=== PATIENT | female | born 1970 ===

== ENCOUNTER 2020-04-19 12:01 | Emergency (ER) | payer OTHER ==
--- NOTE | 2020-04-19 12:18 | EDM.PDOC ---
ED HPI GENERAL MEDICAL PROBLEM - General Chief Complaint: Lower Extremity Injury/Pain Stated Complaint: FALL Time Seen by Provider: 04/19/20 12:11 Source of Information: Reports: Patient History Limitations: Reports: No Limitations - History of Present Illness INITIAL COMMENTS - FREE TEXT/NARRATIVE: HISTORY AND PHYSICAL: History of present illness: Patient is a 49-year-old female presents to the ED via EMS for a left ankle injury. Patient states that she had tripped on her dog just prior to arrival to the ED and twisted/landed on her left ankle. She denies any head injury or loss of consciousness. She denies any proximal knee or hip pain and denies distal numbness or tingling. Patient received 100 mcg of fentanyl and 4 mg of Zofran in route to ED. She denies any pain other than with moving ankle at this time. Review of systems: As per history of present illness and below otherwise all systems reviewed and negative. Past medical history: As per history of present illness and as reviewed below otherwise noncontributory. Surgical history: As per history of present illness and as reviewed below otherwise noncontributory. Social history: No reported history of drug or alcohol abuse. Family history: As per history of present illness and as reviewed below otherwise noncontributory. Physical exam: General: Patient sitting comfortably in no acute distress and nontoxic appearing HEENT: Atraumatic, normocephalic, pupils reactive, negative for conjunctival pallor or scleral icterus, mucous membranes moist, throat clear, neck supple, nontender, trachea midline. No meningeal signs. Lungs: Clear to auscultation, breath sounds equal bilaterally, chest nontender. Heart: S1S2, regular, negative for clicks, rubs, or overt murmur. Abdomen: Soft, nondistended, nontender. Negative for masses or hepatosplenomegaly. Negative for costovertebral tenderness. No rigidity, rebound , guarding. Pelvis: Stable nontender. Genitourinary: Deferred. Rectal: Deferred. Extremities: Atraumatic, negative for cords or calf pain. Neurovascular unremarkable. Neuro: Awake, alert, oriented. Cranial nerves II through XII unremarkable. Cerebellum unremarkable. Motor and sensory unremarkable throughout. Exam nonfocal. Notes: 1200 - x-ray shows a displaced bimalleolar with possible posterior malleolar fracture. Discussed with Dr. Moraes, advised reduction and follow up in clinic on (04/21). Patient was sedated with [address] Berumen. Ankle was reduced easily and a posterior and stirrup splint placed. Patient tolerated procedure well. Patient was given crutches for left tri-malleolar fracture. Diagnostics: Left ankle x-ray Therapeutics: 50mg Fentanyl IV Prescriptions: [place] Impression: Left ankle fracture Plan: Elevate and motrin as needed. You may take norco as needed for severe pain. No weight bearing as discussed, use crutches as instructed You have a follow up appointment with Dr. Moraes at 3:30pm on , April 21. Please arrive at least 15 minutes early for registration purposes Definitive disposition and diagnosis as appropriate pending reevaluation and review of above. Left Ankle Pain Score (Numeric/FACES): 4 - Related Data Allergies Allergy/AdvReac Type Severity Reaction Status Date / Time amoxicillin [Amoxicillin] Allergy Rash Verified 04/19/20 12:06 Home Meds: Home Meds FLUoxetine [PROzac] 80 mg PO DAILY 03/21/14 [History] Acetaminophen/HYDROcodone [[place] 325-5 MG] 1 tab PO Q4H #15 tablet 04/19/20 [Rx] lisinopriL [Lisinopril] 1 tab PO DAILY 04/19/20 [History] Past Medical History HEENT History: Reports: None Cardiovascular History: Reports: Hypertension Respiratory History: Reports: None Gastrointestinal History: Reports: None Genitourinary History: Reports: None 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: 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 History: Reports: None Neurological History: Reports: None Psychiatric History: Reports: Depression Endocrine/Metabolic History: Reports: None Hematologic History: Reports: None Immunologic History: Reports: None Oncologic (Cancer) History: Reports: None Dermatologic History: Reports: None - Infectious Disease History Infectious Disease History: Reports: None - Past Surgical History GI Surgical History: Reports: Other (See Below) Female Surgical History: Reports: Section 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 Surgical History: Reports: Carpal Tunnel Social & Family History - Family History Family Medical History: Noncontributory - Caffeine Use Caffeine Use: Reports: Soda Review of Systems - Review of Systems Review Of Systems: Comprehensive ROS is negative, except as noted in HPI. ED EXAM, GENERAL - Physical Exam Exam: See Below (See dictation) Course - Vital Signs Last Recorded V/S: Last Vital Signs Temp 97.3 F 04/19/20 12:07 Pulse 86 04/19/20 14:05 Resp 16 04/19/20 14:05 BP 110/66 04/19/20 14:05 Pulse Ox 97 04/19/20 14:05 - Orders/Labs/Meds Orders: Active Orders 24 hr Category Date Time Status DME for Discharge [COMM] Stat Oth 04/19/20 14:01 Ordered Meds: Medications Discontinued Medications Generic Name Dose Route Start Last Admin Trade Name Corin PRN Reason Stop Dose Admin Fentanyl 50 mcg 04/19/20 13:07 04/19/20 13:14 Sublimaze IVPUSH 04/19/20 13:08 50 mcg ONETIME ONE Administration Sodium Chloride 1,000 mls @ 999 mls/hr 04/19/20 13:34 04/19/20 13:38 Normal Saline IV 04/19/20 14:34 999 mls/hr STAT ONE Administration Propofol 100 mg 04/19/20 13:26 04/19/20 13:38 Diprivan 20 Ml IVPUSH 04/19/20 13:27 100 mg ONETIME ONE Administration Propofol Confirm 04/19/20 13:26 04/19/20 13:30 Diprivan 20 Ml Administered 04/19/20 13:27 Not Given Dose 200 mg .ROUTE .STK-MED ONE Propofol 80 mg 04/19/20 14:06 04/19/20 13:40 Diprivan 20 Ml IVPUSH 04/19/20 14:07 80 mg ONETIME ONE Administration Departure - Departure Time of Disposition: 14:33 Disposition: Home, Self-Care 01 Condition: Good Clinical Impression: Closed left ankle fracture - Discharge Information Prescriptions: Acetaminophen/HYDROcodone [[place] 325-5 MG] 1 tab PO Q4H #15 tablet Referrals: PCP,None [Primary Care Provider] - Forms: ED Department Discharge Additional Instructions: The following information is given to patients seen in the emergency department who are being discharged to home. This information is to outline your options for follow-up care. We provide all patients seen in our emergency department with a follow-up referral. The need for follow-up, as well as the timing and circumstances, are variable depending upon the specifics of your emergency department visit. If you don't have a primary care physician on staff, we will provide you with a referral. We always advise you to contact your personal physician following an emergency department visit to inform them of the circumstance of the visit and for follow-up with them and/or the need for any referrals to a consulting specialist. The emergency department will also refer you to a specialist when appropriate. This referral assures that you have the opportunity for follow-up care with a specialist. All of these measure are taken in an effort to provide you with optimal care, which includes your follow-up. Under all circumstances we always encourage you to contact your private physician who remains a resource for coordinating your care. When calling for follow-up care, please make the office aware that this follow-up is from your recent emergency room visit. If for any reason you are refused follow-up, please contact the Emergency Department at and asked to speak to the emergency department charge nurse. [facility] [address] [place], [place] [id number] [place] [address] Elevate and motrin as needed. You may take norco as needed for severe pain. No weight bearing as discussed, use crutches as instructed You have a follow up appointment with Dr. Moraes at 3:30pm on April 21. Please arrive at least 15 minutes early for registration purposes. Sepsis Event Note - Evaluation Sepsis Screening Result: No Definite Risk - Focused Exam Vital Signs: Vital Signs Temp Pulse Resp BP Pulse Ox 04/19/20 14:05 86 16 110/66 97 04/19/20 13:55 78 16 100/58 L 97 04/19/20 13:48 74 15 100/53 L 96 04/19/20 13:43 80 15 119/70 99 04/19/20 13:35 72 18 106/60 98 04/19/20 13:06 67 110/64 97 04/19/20 12:07 97.3 F 72 18 114/69 98 Date Exam was Performed: 05/26/20 Time Exam was Performed: 14:34 - My Orders Last 24 Hours: My Active Orders 04/19/20 14:01 DME for Discharge [COMM] Stat - Assessment/Plan Last 24 Hours: My Active Orders 04/19/20 14:01 DME for Discharge [COMM] Stat
--- NOTE | 2020-04-19 12:59 | CR ---
Left ankle: 3 views left ankle were obtained. Displaced bimalleolar fractures are noted as well as possible posterior malleolar fracture. Angulation with unstable ankle mortise is noted. Diffuse soft tissue swelling is seen. Impression: 1. Displaced bimalleolar fracture. Possible posterior malleolar fracture. 2. Unstable ankle mortise with displacement and soft tissue swelling. Diagnostic code #5 This report was dictated in MDT
[2020-04-19] MEDS ORDERED: fentaNYL 100 MCG/2 ML SDV IVPUSH ONE (13:07)
[2020-04-19] MEDS ORDERED: Propofol 200 MG/20 ML SDV IVPUSH ONE ×2 (13:26→14:06)
[2020-04-19] MEDS ORDERED: Propofol 200 MG/20 ML SDV ONE (13:26)
[2020-04-19] MEDS ORDERED: Sodium Chloride 0.9% 1,000 ML IV ONE (13:34)
--- NOTE | 2020-04-19 14:28 | CR ---
Left ankle: 3 views left ankle were obtained. Comparison: Previous left ankle study performed on the same day (12:43 PM). Slightly displaced bimalleolar fractures are noted. Alignment is significantly improved from previous exam. Fiberglass cast in place. No posterior malleolar fracture seen on this study as questioned on previous exam. Small plantar spur is seen. Impression: 1. Slightly displaced bimalleolar fractures. Alignment has significantly improved from previous study. 2. No posterior malleolar fracture is seen. 3. Small plantar spur. Diagnostic code #3 This report was dictated in MDT
[2020-04-19 15:02] VITALS: BP 113/68; PULSE 69
== END 2020-04-19 15:02 | disposition home or self-care (01) ==
LOC: MW.ED 12:01
DX: S82.842A Displaced bimalleolar fracture of left lower leg, initial encounter for closed fracture (principal); I10 Essential (primary) hypertension; F32.9 Major depressive disorder, single episode, unspecified; Z88.1 Allergy status to other antibiotic agents; Z79.899 Other long term (current) drug therapy; W01.0XXA Fall on same level from slipping, tripping and stumbling without subsequent striking against object, initial encounter
CPT/HCPCS: 29515; 73610; 96361; 96374; 99284; J2704; J3010; J7030; 99283

== ENCOUNTER 2020-04-22 12:03 | Day surgery (SDC) | payer OTHER ==
[~2020-04-22 12:03] MED LIST: Clindamycin Phosphate in D5W 900 MG in Premix Bag 1 BAG IV SCH; Glycopyrrolate 0.2 MG/ML SDV ONE; Ketorolac 30 MG/ML SDV ONE; Lactated Ringers 1,000 ML IV SCH; Lidocaine 2% 5 ML SDV ONE; Midazolam 1 MG/ML 2 ML SDV ONE; Ondansetron 4 MG/2 ML SDV ONE; Propofol 200 MG/20 ML SDV ONE; Sodium Chloride 0.9% 20 ML ONE; ceFAZolin 1 GM Vial ONE; fentaNYL 100 MCG/2 ML SDV ONE
[2020-04-22] MEDS ORDERED: Bupivacaine 0.25% 10 ML SDV ONE (12:37)
--- NOTE | 2020-04-22 12:48 | PCM.PREANE ---
Preanesthetic Assessment - Anesthesia/Transfusion/Family Hx Anesthesia History: Prior Anesthesia Without Reaction Family History of Anesthesia Reaction: No Transfusion History: No Prior Transfusion(s) Intubation History: Unknown - Review of Systems General: No Symptoms Pulmonary: No Symptoms Cardiovascular: No Symptoms Gastrointestinal: No Symptoms Neurological: No Symptoms Other: Reports: None - Physical Assessment Vital Signs: Last Vital Signs Temp 36.8 C 04/22/20 12:24 Pulse 88 04/22/20 12:24 Resp 18 04/22/20 12:24 BP 124/60 04/22/20 12:24 Pulse Ox 97 04/22/20 12:24 Height: 5 ft 4 in Weight: 113.398 kg ASA Class: 2 Mental Status: Alert & Oriented x3 Airway Class: Mallampati = 2 Dentition: Reports: Normal Dentition, [place](s) (upper left x2) Thyro-Mental Finger Breadths: 3 Mouth Opening Finger Breadths: 3 ROM/Head Extension: Full Lungs: Clear to Auscultation, Normal Respiratory Effort Cardiovascular: Regular Rate, Regular Rhythm - Lab Values: Laboratory Last Values Urine HCG, Qual NEGATIVE (NEGATIVE) 04/22/20 12:17 - Allergies Allergies/Adverse Reactions: Allergies Allergy/AdvReac Type Severity Reaction Status Date / Time amoxicillin [Amoxicillin] Allergy Rash Verified 04/21/20 13:59 - Blood Blood Available: No - Anesthesia Plan Pre-Op Medication Ordered: None - Acknowledgements Anesthesia Type Planned: General Anesthesia Pt an Appropriate Candidate for the Planned Anesthesia: Yes Alternatives and Risks of Anesthesia Discussed w Pt/Guardian: Yes Pt/Guardian Understands and Agrees with Anesthesia Plan: Yes PreAnesthesia Questionnaire HEENT History: Reports: Other (See Below) Other HEENT History: wears glasses/contacts Cardiovascular History: Reports: Hypertension Respiratory History: Reports: None Gastrointestinal History: Reports: None Genitourinary History: Reports: None 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: 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 History: Reports: Fracture Other 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 History: hx fx foot Neurological History: Reports: None Psychiatric History: Reports: Depression Endocrine/Metabolic History: Reports: Obesity/BMI 30+ (BMI 42.9), Other (See Below) (prediabetic, accucheck 80 preop) Hematologic History: Reports: None Immunologic History: Reports: None Oncologic (Cancer) History: Reports: None Dermatologic History: Reports: None - Infectious Disease History Infectious Disease History: Reports: None - Past Surgical History Head Surgeries/Procedures: Reports: None HEENT Surgical History: Reports: None Cardiovascular Surgical History: Reports: None Respiratory Surgical History: Reports: None GI Surgical History: Reports: Bariatric Procedure, Other (See Below) Other GI Surgeries/Procedures: gastric bypass Female Surgical History: Reports: Section Endocrine Surgical History: Reports: None Neurological Surgical History: Reports: None 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 Surgical History: Reports: Carpal Tunnel Oncologic Surgical History: Reports: None Dermatological Surgical History: Reports: None - SUBSTANCE USE Smoking Status *Q: Current Every Day Smoker Tobacco Use Within Last Twelve Months: Cigarettes - HOME MEDS Home Medications: Home Meds FLUoxetine [PROzac] 80 mg PO DAILY 03/21/14 [History] lisinopriL [Lisinopril] 1 tab PO DAILY 04/19/20 [History] Acetaminophen/HYDROcodone [[place] 325-5 MG] 1 - 2 tab PO Q4H PRN 04/21/20 [ History] - CURRENT (IN HOUSE) MEDS Current Meds: Current Medications Clindamycin Phosphate 900 mg/ (Premix) 50 mls @ 89.286 mls/hr IV ONCALL MAGALY Lactated Ringer's (Ringers, Lactated) 1,000 mls @ 100 mls/hr IV ASDIRECTED MAGALY Discontinued Medications Bupivacaine HCl (Sensorcaine-Mpf 0.25%) Confirm Administered Dose 10 ml .ROUTE .STK-MED ONE Stop: 04/22/20 12:38 Cefazolin Sodium (Ancef) Confirm Administered Dose 2 gm .ROUTE .STK-MED ONE Stop: 04/22/20 12:00 Fentanyl (Sublimaze) Confirm Administered Dose 100 mcg .ROUTE .STK-MED ONE Stop: 04/22/20 12:00 Glycopyrrolate (Robinul) Confirm Administered Dose 0.2 mg .ROUTE .STK-MED ONE Stop: 04/22/20 12:00 Sodium Chloride (Normal Saline) Confirm Administered Dose 20 mls @ as directed .ROUTE .STK-MED ONE Stop: 04/22/20 12:00 Ketorolac Tromethamine (Toradol) Confirm Administered Dose 30 mg .ROUTE .STK- MED ONE Stop: 04/22/20 12:00 Lidocaine (Xylocaine-Mpf 2%) Confirm Administered Dose 10 ml .ROUTE .STK-MED ONE Stop: 04/22/20 12:00 Lidocaine HCl (Xylocaine-Mpf 1%) Confirm Administered Dose 5 ml .ROUTE .STK-MED ONE Stop: 04/22/20 12:00 Midazolam HCl (Versed 1 Mg/Ml) Confirm Administered Dose 2 mg .ROUTE .STK-MED ONE Stop: 04/22/20 12:00 Ondansetron HCl (Zofran) Confirm Administered Dose 4 mg .ROUTE .STK-MED ONE Stop: 04/22/20 12:00 Propofol (Diprivan 20 Ml) Confirm Administered Dose 200 mg .ROUTE .STK-MED ONE Stop: 04/22/20 12:00
[2020-04-22] MEDS ORDERED: Propofol 200 MG/20 ML SDV ONE (13:18)
[2020-04-22] MEDS ORDERED: fentaNYL 100 MCG/2 ML SDV ONE ×2 (13:24→14:09)
[2020-04-22] MEDS ORDERED: Acetaminophen 1,000 MG in Premix Bag 1 BAG IV PRN (13:59)
[2020-04-22] MEDS ORDERED: fentaNYL 100 MCG/2 ML SDV IVPUSH PRN (13:59)
--- NOTE | 2020-04-22 14:45 | CR ---
Left ankle: 5 fluoroscopic spot views were obtained of the left ankle utilizing C-arm device. Study shows placement of plate and screws within previous lateral malleolus fracture. Single screw crosses the fibula into the tibia. Medial malleolus and posterior malleolus fractures are noted. Ankle mortise is symmetric. Fluoroscopy time given as 7.5 seconds. Impression: 1. Procedural study as described above. Diagnostic code #2 This report was dictated in MDT
--- NOTE | 2020-04-22 14:58 | PCM.OPNOTE ---
- General Post-Op/Procedure Note Date of Surgery/Procedure: 04/22/20 Operative Procedure(s): (1) Open reduction and internal fixation of left bimalleolar ankle fracture (staged). (2) Repair of left ankle syndesmosis with syndesmotic screw Findings: Left unstable bimalleolar ankle fracture. Large fracture blisters on medial ankle. Pre Op Diagnosis: (1) Left unstable bimalleolar's fracture/dislocation Post-Op Diagnosis: (1) Left unstable bimalleolar's fracture/dislocation. (2) Left ankle syndesmosis disruption Anesthesia Technique: General LMA Primary Surgeon: Dexter Moraes EBMian in mLs: 5 Complications: None Free Text/Narrative:: After discussion of the risks and benefits of surgery, the patient consented to proceed with surgery. She was taken to the operating room and underwent general anesthesia. She remained in the supine position. The splint was removed and she is noted to have a large fracture blister in an L shape approximately 4 cm x 5 cm and 2 cm in width along with smaller fracture blisters superior and inferior to the main blister. The left lower extremity was then prepped and draped in the usual sterile manner after applying a tourniquet. The leg was elevated and the tourniquet inflated. A longitudinal incision was made along the posterior border of the fibula. Skin was incised with a scalpel. Subcutaneous tissue was incised with electrocautery. The fascia was identified and opened with care taken to protect the superficial peroneal nerve. Fascia was elevated exposing the fracture site. The fracture was reduced with longitudinal traction and inversion of the ankle and a clamp. Good alignment was obtained and a 7 hole one third tubular plate was placed along the posterolateral border of the fibula. Bicortical screws were placed in the third and fourth holes. C-arm was brought in and excellent alignment of the fibula was noted and the fibula was out to length. The fracture was above the level of the syndesmosis of the syndesmosis was disrupted. A a syndesmotic screw was then drilled with a lag technique and a syndesmotic screw inserted under C-arm guidance with the ankle maximally dorsiflexed. The mortise was intact and the medial malleolus was well reduced after placement of the syndesmotic screw. Bicortical screws were placed in the first and second holes. Unicortical cancellus screws were placed in the sixth and seventh holes. C-arm was again brought in and confirmed excellent reduction. Wounds were irrigated. Fascia was closed with interrupted #1 Vicryl suture. Subcutaneous tissue was closed with interrupted 2-0 Vicryl suture. Skin was closed with interrupted 2-0 nylon horizontal mattress sutures. Xeroform was placed over the medial blisters a sterile dressing was applied and the patient was placed in a short leg stirrup splint. Patient was accompanied to the recovery room in stable condition. Pain management: Elevation, icing, ibuprofen, and Vicodin Venous thromboembolism prophylaxis: Aspirin 325 mg by mouth daily for 90 days Postoperative antibiotics not indicated Restrictions: Strictly nonweightbearing on her left lower extremity for 6-8 weeks. Elevate the left lower extremity reduce swelling and throbbing. Kneeling scooter for mobility. Follow up in 1 week's time for wound assessment and evaluation for staged repair of the medial malleolus fracture.
--- NOTE | 2020-04-22 16:06 | PCM.POSTAN ---
POST ANESTHESIA ASSESSMENT - MENTAL STATUS Mental Status: Alert - VITAL SIGNS Vital Signs: Last Vital Signs Temp 36.4 C 04/22/20 15:40 Pulse 81 04/22/20 15:40 Resp 16 04/22/20 15:40 BP 118/66 04/22/20 15:40 Pulse Ox 97 04/22/20 15:40 - RESPIRATORY Respiratory Status: Respiratory Rate WNL - CARDIOVASCULAR CV Status: Pulse Rate WNL - GASTROINTESTINAL GI Status: No Symptoms - POST OP HYDRATION Hydration Status: Adequate & Stable
[2020-04-22 16:32] VITALS: BP 118/65; PULSE 85
--- NOTE | 2020-04-22 16:34 | PCM48HPAN ---
Post Anesthesia Note - EVALUATION WITHIN 48HRS OF ANESTHETIC Vital Signs in Normal Range: Yes Patient Participated in Evaluation: Yes Respiratory Function Stable: Yes Airway Patent: Yes Cardiovascular Function Stable: Yes Hydration Status Stable: Yes Pain Control Satisfactory: Yes Nausea and Vomiting Control Satisfactory: Yes Mental Status Recovered: Yes Vital Signs: Last Vital Signs Temp 36.4 C 04/22/20 15:40 Pulse 85 04/22/20 16:10 Resp 18 04/22/20 16:10 BP 118/65 04/22/20 16:10 Pulse Ox 99 04/22/20 16:10
== END 2020-04-22 16:24 | disposition home or self-care (01) ==
LOC: MW.SDS 12:03
PROVIDERS: ATTEND Orthopaedic Surgery
DX: S82.842A Displaced bimalleolar fracture of left lower leg, initial encounter for closed fracture (principal); S93.492A Sprain of other ligament of left ankle, initial encounter; F32.9 Major depressive disorder, single episode, unspecified; I10 Essential (primary) hypertension; F17.210 Nicotine dependence, cigarettes, uncomplicated; Z88.0 Allergy status to penicillin; E66.9 Obesity, unspecified; Z68.42 Body mass index [BMI] 45.0-49.9, adult; Z79.899 Other long term (current) drug therapy; W18.40XA Slipping, tripping and stumbling without falling, unspecified, initial encounter
CPT/HCPCS: 27814; 76000; 81025; 82962; C1713; J0131; J0690; J1885; J2001; J2250; J2405; J2704; J3010; J3490; J7120; 01480

== ENCOUNTER → 2020-06-01 | Day surgery (SDC) | payer OTHER ==
[~2020-06-01] MED LIST changes: +Bupivacaine 0.25% 10 ML SDV ONE; -Clindamycin Phosphate in D5W 900 MG in Premix Bag 1 BAG IV SCH; +Desflurane 240 ML Bottle ONE; +Dexamethasone 4 MG/ML 5 ML MDV ONE; +HYDROmorphone 2 MG/ML Syringe IVPUSH ONE; -Lidocaine 2% 5 ML SDV ONE; +Ondansetron 4 MG/2 ML SDV IVPUSH ONE; +ceFAZolin 2 GM in Premix Bag 1 BAG IV SCH
--- NOTE | 2020-06-01 09:46 | PCM.PREANE ---
Preanesthetic Assessment - Anesthesia/Transfusion/Family Hx Anesthesia History: Prior Anesthesia Without Reaction Family History of Anesthesia Reaction: No Transfusion History: No Prior Transfusion(s) Intubation History: Unknown - Review of Systems General: No Symptoms Pulmonary: No Symptoms Cardiovascular: No Symptoms Gastrointestinal: No Symptoms Neurological: No Symptoms Other: Reports: None - Physical Assessment NPO Status Date: 05/31/20 Height: 5 ft 4 in Weight: 113.398 kg ASA Class: 2 Mental Status: Alert & Oriented x3 Airway Class: Mallampati = 2 Dentition: Reports: Normal Dentition ROM/Head Extension: Full Lungs: Clear to Auscultation, Normal Respiratory Effort Cardiovascular: Regular Rate, Regular Rhythm - Allergies Allergies/Adverse Reactions: Allergies Allergy/AdvReac Type Severity Reaction Status Date / Time amoxicillin [Amoxicillin] Allergy Rash Verified 05/25/20 13:19 - Blood Blood Available: No - Anesthesia Plan Pre-Op Medication Ordered: None - Acknowledgements Anesthesia Type Planned: General Anesthesia Pt an Appropriate Candidate for the Planned Anesthesia: Yes Alternatives and Risks of Anesthesia Discussed w Pt/Guardian: Yes Pt/Guardian Understands and Agrees with Anesthesia Plan: Yes PreAnesthesia Questionnaire HEENT History: Reports: Other (See Below) Other HEENT History: wears glasses/contacts Cardiovascular History: Reports: Hypertension Respiratory History: Reports: None Gastrointestinal History: Reports: None Genitourinary History: Reports: None 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 History: Reports: Fracture Other 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 History: fx left ankle Neurological History: Reports: Concussion Psychiatric History: Reports: Depression Endocrine/Metabolic History: Reports: Obesity/BMI 30+, Other (See Below) Other Endocrine/Metabolic History: "prediabetic" Hematologic History: Reports: None Immunologic History: Reports: None Oncologic (Cancer) History: Reports: None Dermatologic History: Reports: None - Infectious Disease History Infectious Disease History: Reports: None - Past Surgical History Head Surgeries/Procedures: Reports: None HEENT Surgical History: Reports: None Cardiovascular Surgical History: Reports: None Respiratory Surgical History: Reports: None GI Surgical History: Reports: Bariatric Procedure, Other (See Below) Other GI Surgeries/Procedures: gastric bypass Female Surgical History: Reports: Section Endocrine Surgical History: Reports: None Neurological Surgical History: Reports: None 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 Surgical History: Reports: Carpal Tunnel, ORIF Other 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 Surgeries/Procedures:: previsous ORIF left ankle Oncologic Surgical History: Reports: None Dermatological Surgical History: Reports: None - SUBSTANCE USE Smoking Status *Q: Current Every Day Smoker Tobacco Use Within Last Twelve Months: Cigarettes - HOME MEDS Home Medications: Home Meds FLUoxetine [PROzac] 80 mg PO DAILY 03/21/14 [History] lisinopriL [Lisinopril] 20 mg PO DAILY 04/19/20 [History] Aspirin [Ecotrin EC] 325 mg PO DAILY 05/25/20 [History] - CURRENT (IN HOUSE) MEDS Current Meds: Current Medications Lactated Ringer's (Ringers, Lactated) 1,000 mls @ 100 mls/hr IV ASDIRECTED MAGALY Cefazolin Sodium/Dextrose 2 gm (/ Premix) 50 mls @ 100 mls/hr IV ONCALL MAGALY Discontinued Medications Bupivacaine HCl (Sensorcaine-Mpf 0.25%) Confirm Administered Dose 10 ml .ROUTE .STK-MED ONE Stop: 06/01/20 07:24 Cefazolin Sodium (Ancef) Confirm Administered Dose 1 gm .ROUTE .STK-MED ONE Stop: 06/01/20 07:24 Fentanyl (Sublimaze) Confirm Administered Dose 100 mcg .ROUTE .STK-MED ONE Stop: 06/01/20 07:56 Acetaminophen (Ofirmev) Confirm Administered Dose 100 mls @ as directed .ROUTE .STK-MED ONE Stop: 06/01/20 07:15 Midazolam HCl (Versed 1 Mg/Ml) Confirm Administered Dose 2 mg .ROUTE .STK-MED ONE Stop: 06/01/20 07:56 Ondansetron HCl (Zofran) Confirm Administered Dose 4 mg .ROUTE .STK-MED ONE Stop: 06/01/20 07:56 Ondansetron HCl (Zofran) Confirm Administered Dose 4 mg .ROUTE .STK-MED ONE Stop: 06/01/20 09:39 Propofol (Diprivan 20 Ml) Confirm Administered Dose 400 mg .ROUTE .STK-MED ONE Stop: 06/01/20 07:56
--- NOTE | 2020-06-01 14:20 | PCM.OPNOTE ---
- General Post-Op/Procedure Note Date of Surgery/Procedure: 06/01/20 Operative Procedure(s): Open reduction and internal fixation of left ankle medial malleolus fracture Findings: Comminuted medial malleolus fracture with impending malunion. Pre Op Diagnosis: Left ankle medial malleolus ankle fracture Post-Op Diagnosis: Left ankle medial malleolus ankle fracture Anesthesia Technique: General LMA Primary Surgeon: Dexter Moraes Credit Department Manager: Lynette Geller Reason Credit Department Manager Was Necessary: Retraction and fracture reduction EBL in mLs: 10 Complications: None Condition: Good Free Text/Narrative:: Patient sustained a left ankle bimalleolar ankle fracture approximately 6 weeks ago. Because of large fracture blisters on the medial aspect of the ankle, she initially underwent open reduction and internal fixation of the lateral malleolus ankle fracture on April 22, 2020. During follow-up in clinic, repeat x- rays show that the medial malleolus fracture was now reduced and so we discussed the risks and benefits of delayed open reduction and internal fixation. The patient consented to proceed with surgery. Patient was taken to the operating room. After adequate general anesthesia she remained in a supine position. Tourniquet was placed around the proximal thigh. Left lower extremity prepped and draped in usual sterile manner. The leg elevated and the tourniquet inflated. A medial incision was made directly over the medial malleolus extending proximally. Skin was incised with the scalpel. Subcutaneous tissue were incised electrocautery. The periosteum was elevated and 2 primary fragments were noted involving the posterior medial malleolus and the other fragment involving approximately a quarter of the anterior medial malleolus and the anterior tibia. The callus and fibrous tissue was excised so that the fracture fragments could be reduced. The primary medial malleolus fragment was reduced and fixed with a 4.0 mm cannulated screw. With that fragment reduced the second fragment was reduced to its appropriate position and fixed with 2 mini fragment screws. C-arm views noted anatomic reconstruction of the mortise. Wounds were irrigated. Fascia was closed with interrupted #1 Vicryl suture. Skin was closed with full-thickness interrupted nylon sutures. Sterile dressing was applied and patient was accompanied to recovery room in stable condition. Pain medications: Carlton and ibuprofen Prophylactic antibiotics: Not indicated Venous thrombosis prophylaxis: Aspirin Restrictions: Patient is nonweightbearing for 6 additional weeks from surgery today. She should continue use her kneeling scooter, crutches, walker for mobili ty. She may do active or passive ankle range of motion to prevent stiffness.
[2020-06-01] MEDS: Acetaminophen/HYDROcodone 325-5 MG Tab PO ONE ×2 (14:40→16:27)
--- NOTE | 2020-06-01 14:45 | PCM.POSTAN ---
POST ANESTHESIA ASSESSMENT - MENTAL STATUS Mental Status: Alert, Oriented - VITAL SIGNS Vital Signs: Last Vital Signs Temp 98.6 F 06/01/20 13:56 Pulse 99 06/01/20 14:16 Resp 20 06/01/20 14:16 BP 116/80 06/01/20 14:16 Pulse Ox 96 06/01/20 14:16 - RESPIRATORY Respiratory Status: Respiratory Rate WNL, Airway Patent, O2 Saturation Stable - CARDIOVASCULAR CV Status: Pulse Rate WNL, Blood Pressure Stable - GASTROINTESTINAL GI Status: No Symptoms - POST OP HYDRATION Hydration Status: Adequate & Stable
--- NOTE | 2020-06-01 15:14 | PCM48HPAN ---
Post Anesthesia Note - EVALUATION WITHIN 48HRS OF ANESTHETIC Vital Signs in Normal Range: Yes Patient Participated in Evaluation: Yes Respiratory Function Stable: Yes Airway Patent: Yes Cardiovascular Function Stable: Yes Hydration Status Stable: Yes Pain Control Satisfactory: Yes (2) Nausea and Vomiting Control Satisfactory: Yes Mental Status Recovered: Yes Vital Signs: Last Vital Signs Temp 37 C 06/01/20 13:56 Pulse 99 06/01/20 14:16 Resp 20 06/01/20 14:16 BP 116/80 06/01/20 14:16 Pulse Ox 96 06/01/20 14:16
--- NOTE | 2020-06-01 15:25 | CR ---
Left ankle: 2 fluoroscopic spot views left ankle were obtained. Study obtained utilizing C-arm device. Plate and screws remain within the distal fibula Fixing previous distal fibular fracture. This study shows placement of screw across the medial malleolus fracture. 2 additional screws are noted within the distal tibia. Ankle mortise is symmetric. Fluoroscopy time given as 2.7 seconds. Impression: 1. Procedural study as noted above. Diagnostic code #2 This report was dictated in MDT
[2020-06-01 17:23] VITALS: BP 123/74; PULSE 88
== END | disposition home or self-care (01) ==
LOC: MW.SDS 08:43
PROVIDERS: ATTEND Orthopaedic Surgery
DX: S82.52XA Displaced fracture of medial malleolus of left tibia, initial encounter for closed fracture (principal); I10 Essential (primary) hypertension; F17.210 Nicotine dependence, cigarettes, uncomplicated; E66.9 Obesity, unspecified; Z87.81 Personal history of (healed) traumatic fracture; Z98.890 Other specified postprocedural states; Z88.0 Allergy status to penicillin; Z68.41 Body mass index [BMI] 40.0-44.9, adult; X58.XXXA Exposure to other specified factors, initial encounter
CPT/HCPCS: 27766; 76000; A9270; C1713; C1769; J0131; J0690; J1100; J1885; J2250; J2704; J3010; J3490; J7120; 01480; J2405